=== PATIENT | male | born 1950 | race Caucasian/White ===

== ENCOUNTER → 2016-07-04 | Outpatient (CLI) | payer MEDICARE ==
[~2016-07-04] MED LIST: ACCUPRIL40 MG PO; ALBUTEROL2.5 MG/3 M INH; AMBIEN5 MG PO; ASPIRIN EC81 MG PO; CELEXA20 MG PO; FISH OIL 1,0001 EACH PO; JANUMET 50-5001 EACH PO; LOPRESSOR50 MG PO; LORTAB 5-325 M1 EACH PO; MYSOLINE50 MG PO; PROTONIX40 MG PO; VITAMIN D2000 UNIT PO; WELLBUTRIN XL300 M1 PO; ZETIA10 MG PO; ZOCOR40 MG PO
== END ==
LOC: EXRD 15:37
DX: R05 Cough (principal); J11.1 Influenza due to unidentified influenza virus with other respiratory manifestations; R06.2 Wheezing; Z88.0 Allergy status to penicillin; Z88.5 Allergy status to narcotic agent
CPT/HCPCS: 71020

== ENCOUNTER → 2016-07-12 | Outpatient (CLI) | payer MEDICARE ==
[2016-07-12 12:07] LABS: HEMOGLOBIN 10.9 gm/dl (14.0-17.5); RED BLOOD COUNT 3.41 M/UL (4.20-5.50); WHITE BLOOD COUNT 3.8 K/UL (4.5-11.0)
== END ==
LOC: LAB 11:03
PROVIDERS: Physician Assistant
DX: D64.9 Anemia, unspecified (principal)
CPT/HCPCS: 36415; 82728; 83540; 83550; 83921; 85025

== ENCOUNTER → 2016-10-10 | Outpatient (CLI) | payer MEDICARE ==
[2016-10-10 07:48] LABS: HEMOGLOBIN 12.3 gm/dl (14.0-17.5); RED BLOOD COUNT 3.72 M/UL (4.20-5.50); WHITE BLOOD COUNT 4.1 K/UL (4.5-11.0)
[2016-10-10 08:15] LABS: BUN/CREATININE RATIO 17 (0-10)
== END ==
LOC: LAB 07:17
PROVIDERS: Physician Assistant
DX: D64.9 Anemia, unspecified (principal); E78.5 Hyperlipidemia, unspecified; I10 Essential (primary) hypertension; E11.9 Type 2 diabetes mellitus without complications
CPT/HCPCS: 36415; 80053; 80061; 82043; 82570; 83036; 85025

== ENCOUNTER → 2020-06-07 | Outpatient (CLI) | payer MEDICARE ==
[~2020-06-07] MED LIST changes: +ACCUPRIL20 MG PO; +ADULT GLYCERIN1 EACH PR; +CALCIUM600 MG PO; +CARTIA XT240 MG PO; +CIPRO HC OTIC S10 ML EARLF; +DIFLUCAN200 MG PO; +DILTIAZEM 24HR240 M1 PO; +ELIQUIS5 MG PO; +FLOMAX 0.4 MG0.4 MG PO; +FUROSEMIDE20 MG PO; +GLUCOPHAGE1000 MG PO; +HYDREA CAP 500500 MG PO; +HYDROCODON-ACE1 EAC6 PO; +IRON PO; +LEVAQUIN500 MG PO; +LEVOFLOXACIN500 MG PO; +LIPITOR20 MG PO; +LISINOPRIL10 MG PO; +MIRALAX17 GM PO; +MULTAQ 400 MG400 MG PO; +NORCO 10-325 T1 EACH PO; +NORVASC10 MG PO; +PRADAXA 150 MG150 MG PO; +XYZAL5 MG PO; +ZOFRAN4 MG PO; +ZYLOPRIM 300 M300 MG PO
== END ==
LOC: LAB 14:16 → OPSV 14:16
PROVIDERS: Internal Medicine Hematology & Oncology
DX: D46.9 Myelodysplastic syndrome, unspecified (principal)
CPT/HCPCS: 85014; 85018; 86850; 86900; 86901; 86920; P9016

== ENCOUNTER → 2020-06-08 | Outpatient (CLI) | payer MEDICARE ==
[~2020-06-08] VITALS: Ht 175.3 cm; Wt 88.0 kg
== END ==
LOC: OPSV 07:27
DX: D46.9 Myelodysplastic syndrome, unspecified (principal)
CPT/HCPCS: 36430; J1940; J7050; P9016

== ENCOUNTER 2020-06-26 13:22 | Emergency (ER) | payer MEDICARE ==
[~2020-06-26 13:22] MED LIST changes: -ADULT GLYCERIN1 EACH PR; -CIPRO HC OTIC S10 ML EARLF; -HYDREA CAP 500500 MG PO; -HYDROCODON-ACE1 EAC6 PO; -LEVOFLOXACIN500 MG PO; -MIRALAX17 GM PO; -XYZAL5 MG PO; -ZYLOPRIM 300 M300 MG PO
[2020-06-26 14:14] LABS: RED BLOOD COUNT 2.07 M/UL (4.20-5.50); WHITE BLOOD COUNT 3.4 K/UL (4.5-11.0)
[2020-06-26 14:16] LABS: HEMOGLOBIN 5.7 gm/dl (14.0-17.5)
[2020-06-26 14:32] LABS: BUN/CREATININE RATIO 16 (0-10)
== END 2020-06-26 21:45 | disposition home or self-care (01) ==
LOC: ER1 13:22
PROVIDERS: Physician Assistant Medical
DX: D61.818 Other pancytopenia (principal); C95.90 Leukemia, unspecified not having achieved remission; E11.9 Type 2 diabetes mellitus without complications; J44.9 Chronic obstructive pulmonary disease, unspecified; I10 Essential (primary) hypertension; F17.210 Nicotine dependence, cigarettes, uncomplicated; Z90.89 Acquired absence of other organs; Z88.5 Allergy status to narcotic agent; Z88.0 Allergy status to penicillin
CPT/HCPCS: 36415; 36430; 71045; 80053; 84484; 85025; 85610; 86850; 86900; 86901; 86920; 93005; 99285; P9016

== ENCOUNTER → 2020-07-06 | Outpatient (CLI) | payer MEDICARE ==
[~2020-07-06] VITALS: Ht 175.3 cm; Wt 88.0 kg
[~2020-07-06] MED LIST changes: +ADULT GLYCERIN1 EACH PR; +CIPRO HC OTIC S10 ML EARLF; +HYDREA CAP 500500 MG PO; +HYDROCODON-ACE1 EAC6 PO; +LEVOFLOXACIN500 MG PO; +MIRALAX17 GM PO; +XYZAL5 MG PO; +ZYLOPRIM 300 M300 MG PO
== END ==
LOC: OPSV 07:47
DX: D46.9 Myelodysplastic syndrome, unspecified (principal)
CPT/HCPCS: 36430; J1940; J7050; P9016

== ENCOUNTER 2020-07-11 14:11 | Emergency (ER) | payer MEDICARE ==
[~2020-07-11 14:11] MED LIST changes: -ADULT GLYCERIN1 EACH PR; -CIPRO HC OTIC S10 ML EARLF; -HYDREA CAP 500500 MG PO; -HYDROCODON-ACE1 EAC6 PO; -LEVOFLOXACIN500 MG PO; -MIRALAX17 GM PO; -XYZAL5 MG PO; -ZYLOPRIM 300 M300 MG PO
[2020-07-11 15:33] LABS: HEMOGLOBIN 7.8 gm/dl (14.0-17.5); RED BLOOD COUNT 2.83 M/UL (4.20-5.50)
[2020-07-11] MEDS ORDERED: ADULT GLYCERIN1 EACH PR (19:36)
[2020-07-11] MEDS ORDERED: MIRALAX17 GM PO (19:36)
[2020-07-14 12:46] LABS: WHITE BLOOD COUNT 8.5 K/UL (4.5-11.0)
== END 2020-07-11 19:50 | disposition home or self-care (01) ==
LOC: ER1 14:11
PROVIDERS: Family Medicine
DX: K59.00 Constipation, unspecified (principal); D64.9 Anemia, unspecified; D69.6 Thrombocytopenia, unspecified; E11.9 Type 2 diabetes mellitus without complications; Z20.822 Contact with and (suspected) exposure to COVID-19; I10 Essential (primary) hypertension; Z88.5 Allergy status to narcotic agent; Z88.0 Allergy status to penicillin; Z87.891 Personal history of nicotine dependence; Z90.89 Acquired absence of other organs
CPT/HCPCS: 80053; 81001; 83605; 83690; 85007; 85027; 99284; U0002

== ENCOUNTER → 2020-07-15 | Outpatient (CLI) | payer MEDICARE ==
[~2020-07-15] MED LIST changes: +ADULT GLYCERIN1 EACH PR; +CIPRO HC OTIC S10 ML EARLF; +HYDREA CAP 500500 MG PO; +HYDROCODON-ACE1 EAC6 PO; +LEVOFLOXACIN500 MG PO; +MIRALAX17 GM PO; +XYZAL5 MG PO; +ZYLOPRIM 300 M300 MG PO
== END ==
LOC: OPSV 08:00
DX: D46.9 Myelodysplastic syndrome, unspecified (principal)
CPT/HCPCS: 36430; P9016

== ENCOUNTER 2020-07-24 11:12 | Emergency (ER) | payer MEDICARE ==
[~2020-07-24 11:12] MED LIST changes: -CIPRO HC OTIC S10 ML EARLF; -HYDREA CAP 500500 MG PO; -HYDROCODON-ACE1 EAC6 PO; -LEVOFLOXACIN500 MG PO; -XYZAL5 MG PO; -ZYLOPRIM 300 M300 MG PO
[2020-07-24 12:18] LABS: HEMOGLOBIN 8.5 gm/dl (14.0-17.5); RED BLOOD COUNT 2.99 M/UL (4.20-5.50)
== END 2020-07-24 13:30 | disposition home or self-care (01) ==
LOC: ER1 11:12
PROVIDERS: Physician Assistant
DX: L76.22 Postprocedural hemorrhage of skin and subcutaneous tissue following other procedure (principal); I25.2 Old myocardial infarction; J44.9 Chronic obstructive pulmonary disease, unspecified; E11.9 Type 2 diabetes mellitus without complications; I11.9 Hypertensive heart disease without heart failure; F17.210 Nicotine dependence, cigarettes, uncomplicated; Z90.89 Acquired absence of other organs; Z88.0 Allergy status to penicillin; Z88.5 Allergy status to narcotic agent
CPT/HCPCS: 80053; 85007; 85027; 99283

== ENCOUNTER 2020-07-28 12:36 | Inpatient (IN) | payer MEDICARE ==
[~2020-07-28] VITALS: Ht 175.3 cm; Wt 93.8 kg
[2020-07-28 13:48] LABS: RED BLOOD COUNT 2.16 M/UL (4.20-5.50); WHITE BLOOD COUNT 22.1 K/UL (4.5-11.0)
[2020-07-28 15:29] LABS: HEMOGLOBIN 6.2 gm/dl (14.0-17.5)
[2020-07-28] MEDS ORDERED: ZYLOPRIM 300 M300 MG PO (20:41)
[2020-07-28] MEDS ORDERED: HYDREA CAP 500500 MG PO (20:42)
[2020-07-28] MEDS ORDERED: HYDROCODON-ACE1 EAC6 PO (20:43)
[2020-07-28] MEDS ORDERED: XYZAL5 MG PO (20:44)
--- NOTE | 2020-07-28 23:00 | NUR ---
PT ADMITTED ON DAYSHIFT. DR. YOUNG HAD NOT RECONSILED MEDS. I CALLED DR. CHANEY TO ASK FOR HIS CANCER MEDICATION THAT HE NEEDS TO TAKE TONIGHT AND HE GAVE ME A ORDER TO CONTINUE THE MEDICATION.
--- NOTE | 2020-07-29 07:56 | NUR ---
2nd unit of blood stopped at 0635. [facility]hift will get the 1 hour post transfusion vitals.
[2020-07-29 09:39] LABS: RED BLOOD COUNT 2.44 M/UL (4.20-5.50)
[2020-07-30 04:19] LABS: HEMOGLOBIN 8.1 gm/dl (14.0-17.5)
[2020-07-30 04:43] LABS: RED BLOOD COUNT 2.83 M/UL (4.20-5.50); WHITE BLOOD COUNT 39.5 K/UL (4.5-11.0)
[2020-07-31 03:56] LABS: HEMOGLOBIN 7.6 gm/dl (14.0-17.5); RED BLOOD COUNT 2.64 M/UL (4.20-5.50)
[2020-08-02 03:26] LABS: HEMOGLOBIN 6.9 gm/dl (14.0-17.5); RED BLOOD COUNT 2.35 M/UL (4.20-5.50)
[2020-08-02 03:38] LABS: BUN/CREATININE RATIO 17 (0-10)
--- NOTE | 2020-08-02 10:48 | NUR ---
LEFT MESSAGE FOR DR. MASCORRO R/T [facility].
[2020-08-02] MEDS ORDERED: CIPRO HC OTIC S10 ML EARLF (12:09)
[2020-08-02] MEDS ORDERED: LEVOFLOXACIN500 MG PO (15:00)
[2020-08-02 15:18] LABS: HEMOGLOBIN 7.4 gm/dl (14.0-17.5); RED BLOOD COUNT 2.56 M/UL (4.20-5.50)
--- NOTE | 2020-08-02 15:30 | NUR ---
RECEIVED REPORT OF ABNORMAL VALUES OF CBC FROM G[employer]IC [employer]IAL WORK PROFESSOR, REPORTED BACK TO DR. MASCORRO AND RECEIVED ORDER
--- NOTE | 2020-08-02 17:36 | NUR ---
reported to [facility] admitting nurse of hospice
== END 2020-08-02 20:32 | DRG 871 ==
LOC: ER1 12:36 → CDU 18:09 → M/S 18:09 → MED SURG 4 20:02 → M/S 22:08
PROVIDERS: Internal Medicine; Internal Medicine Nephrology; Nurse Practitioner; Registered Nurse; ADMIT Internal Medicine
PROC: 30233N1 Transfusion of Nonautologous Red Blood Cells into Peripheral Vein, Percutaneous Approach (ICD-10-PCS; principal; 2020-07-29)
PROC: 30233N1 Transfusion of Nonautologous Red Blood Cells into Peripheral Vein, Percutaneous Approach (ICD-10-PCS; 2020-07-30)
PROC: 30233N1 Transfusion of Nonautologous Red Blood Cells into Peripheral Vein, Percutaneous Approach (ICD-10-PCS; 2020-08-02)
DX: A41.9 Sepsis, unspecified organism (principal); J18.9 Pneumonia, unspecified organism; J96.01 Acute respiratory failure with hypoxia; N17.9 Acute kidney failure, unspecified; E87.2 Acidosis; J44.0 Chronic obstructive pulmonary disease with (acute) lower respiratory infection; E87.1 Hypo-osmolality and hyponatremia; C92.00 Acute myeloblastic leukemia, not having achieved remission; L03.811 Cellulitis of head [any part, except face]; Z20.822 Contact with and (suspected) exposure to COVID-19; R65.20 Severe sepsis without septic shock; H60.92 Unspecified otitis externa, left ear; H70.10 Chronic mastoiditis, unspecified ear; D46.9 Myelodysplastic syndrome, unspecified; D64.9 Anemia, unspecified; E79.0 Hyperuricemia without signs of inflammatory arthritis and tophaceous disease; N18.30 Chronic kidney disease, stage 3 unspecified; M19.90 Unspecified osteoarthritis, unspecified site; I12.9 Hypertensive chronic kidney disease with stage 1 through stage 4 chronic kidney disease, or unspecified chronic kidney disease; D69.6 Thrombocytopenia, unspecified; E11.22 Type 2 diabetes mellitus with diabetic chronic kidney disease; F17.220 Nicotine dependence, chewing tobacco, uncomplicated; Z66 Do not resuscitate; I25.10 Atherosclerotic heart disease of native coronary artery without angina pectoris; Z86.73 Personal history of transient ischemic attack (TIA), and cerebral infarction without residual deficits; Z90.49 Acquired absence of other specified parts of digestive tract; Z88.5 Allergy status to narcotic agent; Z88.0 Allergy status to penicillin; Z95.5 Presence of coronary angioplasty implant and graft; Z80.1 Family history of malignant neoplasm of trachea, bronchus and lung; Z84.89 Family history of other specified conditions
CPT/HCPCS: 0240U; 36415; 36430; 36600; 70450; 71045; 80048; 80053; 80202; 81001; 82550; 82553; 82570; 82803; 83605; 83735; 83880; 84100; 84133; 84156; 84300; 84484; 84550; 85007; 85027; 86140; 86850; 86900; 86901; 86920; 87040; 87086; 89050; 93005; 96365; 96366; 96375; 96376; 99284; J2185; J2270; J2405; J3370; J7030; J7050; J7070; P9016; P9047